=== PATIENT | female | born 1980 | race Caucasian/White ===

== ENCOUNTER 2019-08-28 09:58 | Emergency (ER) | payer SELFPAY ==
[~2019-08-28] VITALS: Ht 160 cm; Wt 52.3 kg
[2019-08-28 10:33] VITALS: BP 144/89; PULSE 104; TEMP 98.7
[2019-08-28] MEDS ORDERED: PREDNISONE20 MG PO (11:42)
== END 2019-08-28 11:50 | disposition home or self-care (01) ==
LOC: COL.ER 09:58
DX: M54.41 Lumbago with sciatica, right side (principal); F17.210 Nicotine dependence, cigarettes, uncomplicated